=== PATIENT | female | born 1985 | race African-American/Black ===

== ENCOUNTER 2020-10-22 22:19 | Inpatient (IN) | payer SELFPAY ==
[~2020-10-22] VITALS: Ht 167.6 cm; Wt 65.8 kg
--- NOTE | 2020-10-22 22:25 | NUR ---
Pt bib ra from home for severe 10/10 ruq nonradiating abdominal pain. Was given 100 mcg fentanyl in the field by [facility]. Pt has hx gallstones. Pts. daughter is at the bedside.
[2020-10-22] MEDS ORDERED: KETOROLAC TROMETHAMINE 15 MG INJ IVP ONE (22:30)
[2020-10-22] MEDS ORDERED: IV NORMAL SALINE 1000 ML BAG IV ONE (22:30)
[2020-10-22] MEDS ORDERED: KETOROLAC TROMETHAMINE 15 MG INJ ONE (23:04)
[2020-10-22 23:09] LABS: HEMATOCRIT 34.3 % (31.2-41.9); MEAN CORPUSCULAR HEMOGLOBIN 29.1 uug (24.7-32.8); MEAN CORPUSCULAR VOLUME 90.8 fL (75.5-95.3); PLATELET COUNT (AUTO) 255 K/uL (179-408)
[2020-10-22 23:20] LABS: ALANINE AMINOTRANSFERASE 32 U/L (14-59); ALKALINE PHOSPHATASE 63 U/L (50-136); ASPARTATE AMINOTRANSFERASE 46 U/L (15-37); BILIRUBIN,DIRECT 0.1 mg/dL (0.0-0.2); BILIRUBIN,TOTAL 0.3 mg/dL (0.2-1.0); CARBON DIOXIDE 27 mmol/L (21-32); CHLORIDE 107 mmol/L (98-107); CREATININE 0.7 mg/dL (0.6-1.3); GLUCOSE 97 mg/dL (74-106); LIPASE 155 U/L (73-393); POTASSIUM 3.9 mmol/L (3.5-5.1); TOTAL PROTEIN, SERUM 6.9 g/dL (6.4-8.2); UREA NITROGEN, BLOOD 10 mg/dL (7-18)
--- NOTE | 2020-10-23 00:38 | NUR ---
Called [facility] for pt to be admitted
--- NOTE | 2020-10-23 00:54 | NUR ---
Dr. Patel accepted pt. for admission. Called Dr. Emery for GI consult and left a message, waiting [facility] back.
[2020-10-23] MEDS ORDERED: ONDANSETRON 4 MG/2 ML VIAL IV PRN (01:00)
[2020-10-23] MEDS ORDERED: MAGNESIUM HYDROXIDE 30 ML LIQUID UDC PO PRN (01:00)
[2020-10-23] MEDS ORDERED: ACETAMINOPHEN 325 MG TABLET PO PRN (01:00)
[2020-10-23] MEDS ORDERED: MORPHINE SULFATE 2 MG/1 ML DISP.SYRIN IV PRN (01:00)
[2020-10-23] MEDS ORDERED: Z GUARD REMEDY PASTE 57 GM TUBE TOP PRN (01:00)
[2020-10-23] MEDS ORDERED: PIPERACILLIN SODIUM/TAZOBACTAM 3.375 G in IV DEXTROSE 5% 50 ML IV ONE (01:15)
[2020-10-23 02:28] LABS: *BILIRUBIN,URIN NEGATIVE (NEGATIVE); *BLOOD, URINE 3+ (NEGATIVE); *KETONES,URINE NEGATIVE (NEGATIVE); *UROBILINOGEN,URINE 0.2 E.U./dl (NORMAL); LEUKOCYTE ESTERASE ,URINE NEGATIVE (NEGATIVE); NITRITE, URINE NEGATIVE (NEGATIVE); PH,URINE 8.5 (5.0-8.0); UGLUCOSE NEGATIVE (NEGATIVE)
[2020-10-23 02:30] LABS: *CLARITY,URINE HAZY (CLEAR); *COLOR,URINE STRAW (YELLOW)
[2020-10-23 02:31] LABS: BACTERIA,URINE NONE SEEN /HPF (NONE SEEN); SQUAMOUS EPITHELIAL CELL,UR FEW /HPF (NONE SEEN); WBC,URINE 0-3 /HPF (0-3)
[2020-10-23 02:32] LABS: URINE AMORPHOUS PHOSPHATES MODERATE /HPF
--- NOTE | 2020-10-23 03:06 | NUR ---
Gave report to KISHAN Ordoñez. for pt. transfer to [facility].
[2020-10-23 04:00] VITALS: BP 129/83
[2020-10-23 04:40] VITALS: BP 129/83
--- NOTE | 2020-10-23 04:40 | NUR ---
admitted this 35 y.o. lady from er via [facility], alert and oriented, able to verbalize needs. no acute distress noted. vital signs w/i normal limits, no complaints of pain upon arrival to unit.ivpb administered as ordered, admit diagnosis biliary colic.
[2020-10-23] MEDS ORDERED: PIPERACILLIN/TAZOBACTAM/D5W 50 ML IV ONE (04:41)
[2020-10-23] MEDS: IV D5 1/2 NS 1000 ML 1,000 ML IV PRN (04:51)
[2020-10-23] MEDS ORDERED: PIPERACILLIN SODIUM/TAZOBACTAM 3.375 G in IV DEXTROSE 5% 50 ML IV SCH (06:00)
--- NOTE | 2020-10-23 07:30 | NUR ---
Patient received in bed, alert and oriented x4. Patient is on RA with no SOB or difficulties breathing. No pain or other discomforts noted at this time. No acute distress noted. Left FA IV is intact and running IVF at 75 mL/h as ordered. Patient is aware of transportation at approximately 10:30 AM today for MRCP. Patient currently on menstural cycle and pads provided. Personal belongings and call light within easy reach. Will continue to monitor.
[2020-10-23] MEDS: PANTOPRAZOLE SODIUM 40 MG VIAL IV SCH (08:51)
[2020-10-23 11:53] VITALS: BP 147/76
--- NOTE | 2020-10-23 11:55 | NUR ---
Patient is back from [facility]. Put back on fluids. No reports of pain or discomforts. No acute distress noted at this time.
[2020-10-23] MEDS: PIPERACILLIN SODIUM/TAZOBACTAM 3.375 G in IV DEXTROSE 5% 100 ML IV SCH ×2 (13:16→21:21)
--- NOTE | 2020-10-23 13:25 | NUR ---
After patient was received back on the floor from [facility], patient's temperature was at 99.8F. Now, patient is at 98.6F and I will continue to monitor.
[2020-10-23 15:43] VITALS: BP 114/77
[2020-10-23 20:11] VITALS: BP 114/80
[2020-10-24 04:37] VITALS: BP 103/70
--- NOTE | 2020-10-24 05:16 | NUR ---
Pt slept throughout the night. No distress at this time. IV site on left AC infiltrated, new IV started in right AC. IV site is patent and intact running ordered fluids. Consent for surgery signed. Pre op checklist complete. Patient NPO since midnight. Safety and comfort provided. No other issues or concerns at this time, will endorse to day shift.
[2020-10-24] MEDS: PIPERACILLIN SODIUM/TAZOBACTAM 3.375 G in IV DEXTROSE 5% 100 ML IV SCH (05:46)
[2020-10-24] MEDS: IV D5 1/2 NS 1000 ML 1,000 ML IV PRN (05:46)
[2020-10-24] MEDS ORDERED: MIDAZOLAM HCL 2 MG/2 ML VIAL ONE (06:54)
[2020-10-24] MEDS ORDERED: HYDROMORPHONE 2 MG/1 ML DISP.SYRIN ONE (06:55)
[2020-10-24] MEDS ORDERED: FENTANYL CITRATE 250 MCG/5 ML AMPUL ONE (06:55)
[2020-10-24] MEDS ORDERED: ROCURONIUM BROMIDE 50 MG/5 ML VIAL ONE (06:56)
[2020-10-24] MEDS ORDERED: BUPIVACAINE/EPI PF 0.25% 30 ML VIAL ONE (06:57)
[2020-10-24] MEDS ORDERED: POLYMYXIN B SULFATE 500,000 UNITS VIAL ONE (06:57)
[2020-10-24 07:26] LABS: MEAN CORPUSCULAR HEMOGLOBIN 29.9 uug (24.7-32.8); MEAN CORPUSCULAR VOLUME 92.3 fL (75.5-95.3); PLATELET COUNT (AUTO) 262 K/uL (179-408)
[2020-10-24 07:31] LABS: CREATININE 0.8 mg/dL (0.6-1.3); POTASSIUM 3.8 mmol/L (3.5-5.1)
[2020-10-24 07:40] LABS: BILIRUBIN,DIRECT 0.1 mg/dL (0.0-0.2); BILIRUBIN,TOTAL 0.3 mg/dL (0.2-1.0); MAGNESIUM 2.1 mg/dL (1.8-2.4); PHOSPHOROUS 3.5 mg/dL (2.5-4.9); TOTAL PROTEIN, SERUM 7.3 g/dL (6.4-8.2)
[2020-10-24 07:47] LABS: THYROID STIMULATING HORMONE 1.084 mIU/mL (0.358-3.740)
[2020-10-24] MEDS: PANTOPRAZOLE SODIUM 40 MG VIAL IV SCH (08:57)
--- NOTE | 2020-10-24 09:15 | NUR ---
RECEIVED FROM . A&O X3. DENIES PAIN OR DISCOMFORT. VS STABLE. STAB WOUNDS X4 TO ABD WITH DSGS ALL CLEAN, DRY, AND INTACT.
[2020-10-24] MEDS ORDERED: MORPHINE SULFATE 2 MG/1 ML DISP.SYRIN IV PRN (09:30)
[2020-10-24] MEDS ORDERED: HYDROCODONE/APAP 5-325MG TABLET PO PRN (09:30)
--- NOTE | 2020-10-24 10:00 | NUR ---
STATES NO PAIN OR APPETITE AT THIS TIME.
[2020-10-24 10:15] VITALS: BP 100/58
[2020-10-24 10:30] VITALS: BP 100/56
[2020-10-24 11:00] VITALS: BP 96/59
[2020-10-24 11:27] VITALS: BP 90/59
--- NOTE | 2020-10-24 13:30 | NUR ---
DR. QUIROS NOTIFIED THAT PATIENT NOT TOLERATING PO. WILL HOLD DISCHARGE FOR NOW.
[2020-10-24 15:20] VITALS: BP 104/64
--- NOTE | 2020-10-24 17:30 | NUR ---
DINNER BELL. WELL. FEELING MUCH BETTER & REQUESTING TO BE DISCHARGED.
--- NOTE | 2020-10-24 18:00 | NUR ---
DR. LYLES NOTIFIED. ORDERS RECEIVED.
--- NOTE | 2020-10-24 19:17 | NUR ---
patient received with orders for discharge.Day shift RN has done the discharge instructions and awaiting for the transportation Addendum: 10/24/20 at 1923 by [facility] RN2 RN as per report.the primary care physician has not responded to the call of the Day shift rn and no orders from the primary care physician.will need to inform physician and needs to have clearance from the primary care physician.
--- NOTE | 2020-10-24 19:20 | NUR ---
IV DC'D. ANGIOCATH REMOVED INTACT. MED PO FOR C/O H/A AND ABD PAIN WITH GOOD EFFECT AFTER 15 MINS.
--- NOTE | 2020-10-24 19:40 | NUR ---
DISCHARGED VIA W/C, ACCOMPANIED BY GUILLERMINA LU TO MOTHER IN AUTO. IN GOOD SPIRITS.
== END 2020-10-24 19:40 | disposition home or self-care (01) | DRG 418 ==
LOC: ER 22:20 → MEDSURG3 10-23 01:01
PROVIDERS: ADMIT Student in an Organized Health Care Education/Training Program; ATTEND Student in an Organized Health Care Education/Training Program
PROC: 0FT44ZZ Resection of Gallbladder, Percutaneous Endoscopic Approach (ICD-10-PCS; principal; 2020-10-24)
DX: K80.50 Calculus of bile duct without cholangitis or cholecystitis without obstruction (principal); E44.0 Moderate protein-calorie malnutrition; E78.5 Hyperlipidemia, unspecified; E88.09 Other disorders of plasma-protein metabolism, not elsewhere classified; R10.84 Generalized abdominal pain; Z68.23 Body mass index [BMI] 23.0-23.9, adult; Z20.822 Contact with and (suspected) exposure to COVID-19; K66.0 Peritoneal adhesions (postprocedural) (postinfection)
CPT/HCPCS: 36415; 70030-TC; 74181; 83690; 83735; 84100; 84443; 85025; 87040; 93005; A4663; C9113; G0378; J1170; J1885; J2250; J2543; J3010; J3490; J7030; J7060